=== PATIENT | female | born 1990 | race African-American/Black ===

== ENCOUNTER 2017-11-07 12:35 | Emergency (ER) | payer OTHER ==
[2017-11-07 13:09] LABS: BILIRUBIN,URINE NEGATIVE (NEGATIVE); GLUCOSE, URINE (UA) NEGATIVE (NEGATIVE); KETONES,URINE (UA) NEGATIVE (NEGATIVE); LEUKOCYTE ESTERASE, URINE TRACE (NEGATIVE); NITRITE,URINE NEGATIVE (NEGATIVE); OCCULT BLOOD,URINE NEGATIVE (NEGATIVE); PH,URINE 7.5 PH (5.0-7.5); PROTEIN,URINE NEGATIVE (NEGATIVE); UROBILINOGEN,URINE 1 (NORMAL) E.U./dL (NORMAL)
[2017-11-07 13:11] LABS: CLARITY,URINE CLOUDY (CLEAR); HCG UR QUAL NEGATIVE
[2017-11-07 13:19] LABS: AMORPHOUS SEDIMENT,UR Marked /LPF; BACTERIA,URINE Few /HPF (None Seen); RBC,URINE 0-5 /HPF (0-5); SQUAMOUS EPITHELIAL CELL,UR MANY Squamous (<= Few)
[2017-11-07 13:25] LABS: BASOPHILS # (AUTO) 0.1 10^3/uL (0.0-0.1); BASOPHILS % (AUTO) 1.2 %; EOSINOPHILS # (AUTO) 0.1 10^3/uL (0.0-0.7); EOSINOPHILS % (AUTO) 1.8 %; HGB - HEMOGLOBIN 12.9 g/dL (12.0-16.0); LYMPHOCYTES # (AUTO) 1.5 10^3/uL (1.5-3.5); MEAN CORPUSCULAR HEMOGLOBIN 29.2 pg (27.0-31.0); MEAN CORPUSCULAR HGB CONC 32.9 g/dL (32.0-36.0); MEAN CORPUSCULAR VOLUME 88.8 fL (81.0-99.0); MEAN PLATELET VOLUME 8.5 fL (7.9-10.8); MONOCYTES # (AUTO) 0.7 10^3/uL (0.0-1.0); NEUTROPHILS # (AUTO) 4.1 10^3/uL (1.5-6.6); PLT - PLATELET COUNT 241 10^3/uL (130-450); RED BLOOD COUNT 4.42 10^6/uL (4.20-5.40); RED CELL DISTRIBUTION WIDTH 12.5 % (12.0-15.0); WHITE BLOOD COUNT 6.5 x10^3/uL (4.8-10.8)
[2017-11-07 13:37] LABS: ALBUMIN 4.4 g/dL (3.2-5.5); ALBUMIN/GLOBULIN RATIO 1.3 (1.0-2.2); BILIRUBIN,TOTAL 0.7 mg/dL (0.2-1.0); CREATININE 0.8 mg/dL (0.4-1.0); TOTAL PROTEIN 7.8 g/dL (6.7-8.2)
[2017-11-07] MEDS ORDERED: KETOROLAC 60 MG/2 ML VIAL IVP STA (14:39)
--- NOTE | 2017-11-07 14:43 | ED Physician Documentation ---
History of Present Illness - Stated complaint Stated Complaint: ABD/SIDE PX,FEMALE - Chief complaint Chief Complaint: Abd Pain - Additonal information Additional information: hx from pt 27 y/o female AD [place] not now LMP 3 to ER with L abd pain for 4 days no fever no NVD no vag bleed some dysuria and vag dc no bloody BM Review of Systems Constitutional: denies: Fever Throat: denies: Sore throat Cardiac: denies: Chest pain / pressure Respiratory: denies: Dyspnea, Cough GI: reports: Abdominal Pain. denies: Nausea, Vomiting, Diarrhea : reports: Dysuria, Discharge. denies: Vaginal bleeding Endocrine: denies: Easy bruising / bleeding Immunocompromised: denies: Immunocompromised PD PAST MEDICAL HISTORY - Past Medical History Past Medical History: No - Past Surgical History Past Surgical History: No - Present Medications Home Medications: Ambulatory Orders Medication Instructions Recorded Confirmed Doxycycline Hyclate 100 mg PO BID #20 capsule 11/07/17 Ibuprofen [Motrin] 400 mg PO Q6H PRN #30 tablet 11/07/17 - Allergies Allergies/Adverse Reactions: Allergies Allergy/AdvReac Type Severity Reaction Status Date / Time No Known Drug Allergies Allergy Verified 11/07/17 12:48 - Social History Does the pt smoke?: No Smoking Status: Never smoker - Immunizations Immunizations are current?: Yes PD ED PE NORMAL - Vitals Vital signs reviewed: Yes - Cardiac Cardiac: RRR - Respiratory Respiratory: No respiratory distress - Abdomen Abdomen: Soft, Other (marked TTP to entire L abd with some vol guarding) - Female 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), Other (+ thin cloudy yelow dc, no blood + mild CMT + L adnexal TTP) - Derm Derm: Normal color - Neuro Neuro: Alert and oriented X 3 Results - Vitals Vitals: Vital Signs - 24 hr 11/07/17 11/07/17 11/07/17 12:46 14:45 16:44 Temperature 36.9 C 36.9 C Heart Rate 93 74 69 Respiratory 18 18 16 Rate Blood Pressure 123/81 H 127/66 117/84 H O2 Saturation 99 99 99 Oxygen O2 Source Room air - Labs Labs: Microbiology 11/07/17 15:40 Wet Prep - Final Vaginal Laboratory Tests 11/07/17 11/07/17 11/07/17 12:50 13:20 13:20 WBC 6.5 RBC 4.42 Hgb 12.9 Hct 39.2 MCV 88.8 MCH 29.2 MCHC 32.9 RDW 12.5 Plt Count 241 MPV 8.5 Neut # 4.1 Lymph # 1.5 [place] # 0.7 Eos # 0.1 Baso # 0.1 Absolute Nucleated RBC 0.00 Nucleated RBC % 0.0 Sodium 134 L Potassium 3.6 Chloride 101 Carbon Dioxide 27 Anion Gap 6.0 BUN 8 Creatinine 0.8 Estimated GFR (MDRD) 104 Glucose 91 Calcium 9.0 Total Bilirubin 0.7 AST 67 H ALT 93 H Alkaline Phosphatase 77 Total Protein 7.8 Albumin 4.4 Globulin 3.4 Albumin/Globulin Ratio 1.3 Lipase 15 L Urine Color YELLOW Urine Clarity CLOUDY Urine pH 7.5 Ur Specific [place] 1.020 Urine Protein NEGATIVE Urine Glucose (UA) NEGATIVE Urine Ketones NEGATIVE Urine Occult Blood NEGATIVE Urine Nitrite NEGATIVE Urine Bilirubin NEGATIVE Urine Urobilinogen 1 (NORMAL) Ur Leukocyte Esterase TRACE H Urine RBC 0-5 Urine WBC 4-5 Ur Squamous Epith Cells MANY Squamous H Amorphous Sediment Marked Urine Bacteria Few Ur Microscopic Review INDICATED Urine Culture Comments NOT INDICATED Urine HCG, Qual NEGATIVE - Rads (name of study) CT AP Radiology: See rad report (3.5 X 3.4 cm L ovarian cyst rec 6-8 wk fup sono, small FF, nl kidneys, nl appendix, IUD in place) PD MEDICAL DECISION MAKING - ED course ED course: HCG neg not a clean cath but does not seem to be a UTI has vag dc so will do pelvic but sig abd pain all the way to LUQ - will image as well to eval for colitis, FF , etc Departure - Departure Disposition: 01 Home, Self Care Clinical Impression: Cervicitis Ovarian cyst Qualifiers: Laterality: left Qualified Code(s): N83.202 - Unspecified ovarian cyst, left side Condition: Good Instructions: ED Cyst Ovarian Prescriptions: Doxycycline Hyclate 100 mg PO BID #20 capsule Ibuprofen [Motrin] 400 mg PO Q6H PRN #30 tablet PRN Reason: Pain Comments: The labs looked fine Based on the pelvic exam i am concerned you might have an infection - cultures are running - we have treated you with antibiotic to cover a variety of possible infections and the ER staff will call you if any of the cultures are positive. The CT scan showed a large left ovarian cyst with some free fluid suggesting it may have leaked causing the pain. It is not bleeding and is not so large it might cut off the blood flow to the ovary - so you do not need surgery and can go home with motrin and tylenol as needed for the pain. But it is important that you have your doctors at [facility] get a pelvic ultrasound in about 2 months to be sure the cyst has resolved. Return to the ER if worse
[2017-11-07] MEDS ORDERED: IOPAMIDOL-300 100 ML VIAL ONE (15:35)
[2017-11-07] MEDS ORDERED: IOPAMIDOL-300 100 ML VIAL IVP ONE (16:11)
--- NOTE | 2017-11-07 16:40 | CT Preliminary Report ---
Exam: CT ABDOMEN/PELVIS W/ IMPRESSION: 1. Left ovarian cyst measuring 3.5 x 3.4 cm. A 6-8 week follow-up pelvic ultrasound is recommended to ensure resolution. 2.Small amount of free fluid in the posterior cul-de-sac. 3. Kidneys appear within normal limits. 4. Normal appendix. [facility] SITE ID: [id number]
--- NOTE | 2017-11-07 16:40 | CT Report ---
EXAM: CT ABDOMEN AND PELVIS EXAM DATE: 11/07/2017 04:11 PM. CLINICAL HISTORY: Left abdominal pain for 4 days. Painful urination. COMPARISONS: None. TECHNIQUE: Routine helical CT imaging was performed through the abdomen and pelvis. IV contrast: ISOV UE 300 100mL. Enteric contrast: No. Reconstructions: Coronal and sagittal. In accordance with CT protocol optimization, one or more of the following dose reduction techniques w ere utilized for this exam: automated exposure control, adjustment of mA and/or KV based on patient s ize, or use of iterative reconstructive technique. FINDINGS: Lung bases: No acute findings. Liver: Unremarkable. Gallbladder: Unremarkable. Bile ducts: Unremarkable Pancreas: Unremarkable. Spleen: Unremarkable. Adrenals: Unremarkable. Kidneys: Unremarkable. No evidence for acute pyelonephritis. Bowel: Unremarkable. Normal appendix. Small amount of free fluid in the posterior cul-de-sac. No free air. Pelvis: Intrauterine device is in place. The uterus is anteverted. Left ovarian cyst measuring 3.5 x 3.4 cm, Hounsfield units of 16. The bladder is unremarkable. Vascular structures: No acute findings. Bones: No acute bone findings. IMPRESSION: 1. Left ovarian cyst measuring 3.5 x 3.4 cm. A 6-8 week follow-up pelvic ultrasound is recommended to ensure resolution. 2.Small amount of free fluid in the posterior cul-de-sac. 3. Kidneys appear within normal limits. 4. Normal appendix. [facility] Referring Provider Line: [phone] SITE ID: [id number]
[2017-11-07] MEDS ORDERED: cefTRIAXone 250 MG VIAL IM STA (18:10)
[2017-11-07] MEDS ORDERED: LIDOCAINE 1% 2 ML VIAL SUBQ ONE (18:10)
[2017-11-07 18:37] VITALS: BP 117/91
== END 2017-11-07 18:35 | disposition home or self-care (01) ==
LOC: ED 12:35
DX: N72 Inflammatory disease of cervix uteri (principal); N83.202 Unspecified ovarian cyst, left side
CPT/HCPCS: 36415; 74177; 80053; 81001; 81025; 83690; 85025; 87210; 87491; 87591; 96372; 96374; 99283; 99284; Q9967; 81003; 87086

== ENCOUNTER 2018-08-22 12:49 | Emergency (ER) | payer OTHER ==
[2018-08-22 14:24] LABS: BILIRUBIN,URINE NEGATIVE (NEGATIVE); GLUCOSE, URINE (UA) NEGATIVE (NEGATIVE); KETONES,URINE (UA) NEGATIVE (NEGATIVE); LEUKOCYTE ESTERASE, URINE MODERATE (NEGATIVE); NITRITE,URINE NEGATIVE (NEGATIVE); OCCULT BLOOD,URINE MODERATE (NEGATIVE); PH,URINE 6.5 PH (5.0-7.5); PROTEIN,URINE NEGATIVE (NEGATIVE); UROBILINOGEN,URINE 0.2 (NORMAL) E.U./dL (NORMAL)
[2018-08-22 14:27] LABS: CLARITY,URINE CLEAR (CLEAR); HCG UR QUAL NEGATIVE
[2018-08-22 14:39] LABS: BACTERIA,URINE Few /HPF (None Seen); RBC,URINE 0-5 /HPF (0-5); SQUAMOUS EPITHELIAL CELL,UR MANY Squamous (<= Few)
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
[2018-08-22 15:34] VITALS: BP 115/82
== END 2018-08-22 15:34 | disposition home or self-care (01) ==
LOC: ED 12:49
DX: N72 Inflammatory disease of cervix uteri (principal)
CPT/HCPCS: 81001; 81003; 81025; 87086; 87210; 87491; 87591; 99283

== ENCOUNTER 2019-03-09 14:03 | Emergency (ER) | payer OTHER ==
--- NOTE | 2019-03-09 15:02 | ED Physician Documentation ---
PD HPI HEADACHE - Stated complaint Stated Complaint: MIGRAINE - Chief complaint Chief Complaint: Neuro - History obtained from History obtained from: Patient - History of Present Illness Timing - onset: Today Timing - duration: Hours Timing - details: Abrupt onset, Still present Worst headache ever?: No: Worst headache ever? (similar to other migraines) Location: Left Quality: Throbbing, Aching Associated symptoms: Nausea, Vision changes (blurred and some wiggly aspects). No: Fever, Stiff neck, Weakness Worsened by: Light Contributing factors: No: Anticoagulated, Recent illness, Trauma Recently seen: Not recently seen (She has had similar headaches monthly or every couple of months for the past half year to year. Intermittently prior to that. She has an appointment with her primary care upcoming regarding these. In the past she would take ibuprofen and rest for a few hours. She has not had any migraine specific treatments.) Review of Systems Constitutional: denies: Fever, Chills, Myalgias Eyes: reports: Photophobia. denies: Loss of vision, Irritation Nose: denies: Rhinorrhea / runny nose, Congestion Throat: denies: Sore throat Respiratory: denies: Cough GI: reports: Nausea. denies: Vomiting, Diarrhea Neurologic: denies: Focal weakness, Numbness, Altered mental status PD PAST MEDICAL HISTORY - Past Medical History Cardiovascular: None Respiratory: None Neuro: Migraines Endocrine/Autoimmune: None - Past Surgical History Past Surgical History: No - Present Medications Home Medications: Ambulatory Orders Medication Instructions Recorded Confirmed Ibuprofen [Motrin] 400 mg PO Q6H PRN #30 tablet 11/07/17 RX: Doxycycline Hyclate 100 mg PO BID #20 capsule 11/07/17 Hydrocodone/Acetaminophen 1 - 2 each PO Q6H PRN #14 tablet 08/22/18 [Hydrocodon-Acetaminophen 5-325] RX: Doxycycline Hyclate 100 mg PO BID #20 capsule 08/22/18 Ondansetron Odt [Zofran] 4 mg TL Q6H PRN #10 tablet 03/09/19 RX: Naproxen 500 mg PO BID #20 tablet 03/09/19 SUMAtriptan [Imitrex] 50 mg PO ONCE PRN #5 tablet 03/09/19 - Allergies Allergies/Adverse Reactions: Allergies Allergy/AdvReac Type Severity Reaction Status Date / Time No Known Drug Allergies Allergy Verified 03/09/19 14:45 - Social History Does the pt smoke?: No Smoking Status: Never smoker Does the pt drink ETOH?: Yes Does the pt have substance abuse?: No - Immunizations Immunizations are current?: Yes PD ED PE NORMAL - Vitals Vital signs reviewed: Yes - General General: Alert and oriented X 3, No acute distress, Well developed/nourished - HEENT HEENT: PERRL, EOMI (Light sensitive), Pharynx benign, Other (Fundi appear normal) - Neck Neck: Supple, no meningeal sign, No adenopathy - Cardiac Cardiac: RRR, No murmur - Respiratory Respiratory: Clear bilaterally - Derm Derm: Normal color, Warm and dry - Neuro Neuro: Alert and oriented X 3, 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 I can write prescriptions for similar medications at home for subsequent migraines. She is to follow-up with her primary care.), considered differential (Sounds migraine like without any red flags. Will treat empirically with antimigraine medications.), d/w patient Departure - Departure Disposition: 01 Home, Self Care Clinical Impression: Migraine headache Qualifiers: Migraine type: without aura Status migrainosus presence: without status migrainosus Intractability: not intractable Qualified Code(s): G43.009 - Migraine without aura, not intractable, without status migrainosus Condition: Stable Record reviewed to determine appropriate education?: Yes Instructions: ED Headache Migraine Prescriptions: RX: Naproxen 500 mg PO BID #20 tablet Ondansetron Odt [Zofran] 4 mg TL Q6H PRN #10 tablet PRN Reason: Nausea / Vomiting SUMAtriptan [Imitrex] 50 mg PO ONCE PRN #5 tablet PRN Reason: Migraine Comments: Stay well-hydrated. Rest today. Use the Imitrex combined with Zofran and naproxen for subsequent migraines. Follow-up with the primary care as planned for them to continue on with treatments for your migraines. Discharge Date/Time: 03/09/19 16:37
[2019-03-09] MEDS ORDERED: KETOROLAC 30 MG/ML VIAL IM STA (15:11)
[2019-03-09] MEDS ORDERED: SUMAtriptan 6 MG/0.5 ML VIAL SUBQ STA (15:11)
[2019-03-09] MEDS ORDERED: ONDANSETRON ODT 4 MG TABLET TL STA (15:11)
[2019-03-09 16:34] VITALS: BP 130/87
== END 2019-03-09 16:37 | disposition home or self-care (01) ==
LOC: ED 14:03
DX: G43.009 Migraine without aura, not intractable, without status migrainosus (principal)
CPT/HCPCS: 96372; 99283; 99284; Q0162